=== PATIENT | female | born 1955 | race Caucasian/White ===

== ENCOUNTER 2018-08-20 10:56 | Emergency (ER) | payer BC ==
[2018-08-20 16:00] LABS: ADD MAN DIFF? NO
[2018-08-20 16:04] LABS: WHITE BLOOD COUNT 7.1 10^3/ul (4.8-10.8)
[2018-08-20 16:04] LABS: BASOPHILS % 0.3 % (0.0-2.0); EOSINOPHILS # 0.1 10^3/ul (0.0-0.5); EOSINOPHILS % 0.8 % (0.0-7.0); HEMATOCRIT 40.7 % (37.0-47.0); HEMOGLOBIN 13.1 g/dl (12.0-16.0); LYMPHOCYTES # 1.9 10^3/ul (0.8-2.9); LYMPHOCYTES % 26.1 % (15.0-51.0); MEAN CORPUSCULAR HEMOGLOBIN 27.8 pg (29.0-33.0); MEAN CORPUSCULAR HGB CONC 32.2 g/dl (32.0-37.0); MEAN CORPUSCULAR VOLUME 86.4 fl (82.0-101.0); MEAN PLATELET VOLUME 11.3 fl (7.4-10.4); MONOCYTE # 0.5 10^3/ul (0.3-0.9); MONOCYTES % 6.9 % (0.0-11.0); NEUTROPHIL # 4.7 10^3/ul (1.6-7.5); NEUTROPHILS % 65.8 % (39.0-77.0); PLATELET COUNT 219 10^3/UL (140-415); RED BLOOD COUNT 4.71 10^6/ul (4.20-5.40); RED CELL DISTRIBUTION WIDTH 12.9 % (11.5-14.5)
[2018-08-20 16:30] LABS: ANION GAP 6 (5-13); BLOOD UREA NITROGEN 11 mg/dl (7-20); CALCIUM 9.5 mg/dl (8.4-10.2); CARBON DIOXIDE 32 mmol/L (21-31); CHLORIDE 105 mmol/L (97-110); CHOL/HDL RATIO 4.1 RATIO; CREATININE 0.56 mg/dl (0.44-1.00); Estimated GFR > 60 mL/min (>60); GLUCOSE 93 mg/dl (70-220); HDL CHOLESTEROL 48 mg/dl (35-98); LDL CHOLESTEROL,CALCULATED 124 mg/dl; POTASSIUM 3.7 mmol/L (3.5-5.1); SODIUM 143 mmol/L (135-144)
[2018-08-20 16:31] LABS: INR 0.92; PROTIME 12.5 Sec (11.9-14.9)
[2018-08-20 16:32] LABS: PARTIAL THROMBOPLASTIN TIME 27.2 Sec (23.0-35.0)
[2018-08-20 16:37] LABS: CHOLESTEROL 201 mg/dl (100-200); TRIGLYCERIDES 146 mg/dl (0-149)
[2018-08-20 16:42] LABS: TROPONIN-I < 0.012 ng/ml (0.000-0.120)
[2018-08-20 17:03] LABS: HEMOGLOBIN A1C 5.3 % (0-5.9)
== END 2018-08-20 20:21 | disposition short-term general hospital (02) ==
LOC: E/R 10:56
DX: R13.10 Dysphagia, unspecified (principal); I10 Essential (primary) hypertension; R07.9 Chest pain, unspecified; R93.0 Abnormal findings on diagnostic imaging of skull and head, not elsewhere classified; Z79.82 Long term (current) use of aspirin
CPT/HCPCS: 36415; 70450; 71045; 80048; 80061; 82962; 83036; 84484; 85025; 85610; 85730; 93005; 99285-25